=== PATIENT | male | born 1960 | race Caucasian/White ===

== ENCOUNTER → 2024-11-20 | Emergency (ER) | payer MEDICARE, OTHER ==
[~2024-11-20] VITALS: Ht 193 cm; Wt 147.4 kg
[~2024-11-20] MED LIST: CEPH-570 PO; CEPHALEXIN MONOHYDRATE 500 MG CAPSULE PO ONE; IBUPROFEN 400 MG TABLET ONE; SULF1TAB48 PO; SULFAMETH/TRIMETH 800/160 MG 1 UDTAB TABLET ONE
[2024-11-20 01:47] VITALS: BP 138/74
[2024-11-20] MEDS: CEPHALEXIN MONOHYDRATE 500 MG CAPSULE PO ONE (02:23)
[2024-11-20] MEDS: SULFAMETH/TRIMETH 800/160 MG 1 UDTAB TABLET PO ONE (02:23)
[2024-11-20 02:30] VITALS: TEMP 98.2
[2024-11-20] MEDS: IBUPROFEN 400 MG TABLET PO ONE (02:30)
[2024-11-20 02:51] VITALS: O2SAT 96
== END | disposition home or self-care (01) ==
LOC: ER 00:55
DX: L97.519 Non-pressure chronic ulcer of other part of right foot with unspecified severity (principal); I10 Essential (primary) hypertension